=== PATIENT | male | born 1960 | race Hispanic/Latino ===

== ENCOUNTER 2021-10-17 13:26 | Emergency (ER) | payer OTHER ==
[~2021-10-17] VITALS: Ht 162.6 cm; Wt 77.1 kg
[2021-10-17 13:30] VITALS: BP 152/83
[2021-10-17] MEDS ORDERED: 0.9%NACL 1000ML 1,000 ML IV ONE (14:00)
== END 2021-10-17 15:30 | disposition left against medical advice (07) ==
LOC: EDH 13:26
DX: R53.1 Weakness (principal); Z53.21 Procedure and treatment not carried out due to patient leaving prior to being seen by health care provider